=== PATIENT | male | born 1990 | race Caucasian/White ===

== ENCOUNTER 2017-12-13 01:54 | Emergency (ER) | payer BC, OTHER ==
[~2017-12-13] VITALS: Ht 180.3 cm; Wt 77.1 kg
[2017-12-13 02:01] VITALS: BP_SYST 136
[2017-12-13 03:26] VITALS: BP_SYST 136
== END 2017-12-13 03:26 | disposition home or self-care (01) ==
LOC: SED 01:54
DX: G43.809 Other migraine, not intractable, without status migrainosus (principal); I10 Essential (primary) hypertension; Z88.8 Allergy status to other drugs, medicaments and biological substances
CPT/HCPCS: 99283